=== PATIENT | male | born 1975 | race African-American/Black ===

== ENCOUNTER 2017-07-17 16:00 | Emergency (ER) | payer BC, OTHER ==
[2017-07-17] MEDS ORDERED: Losartan 50 MG Tab PO ONE (16:12)
[2017-07-17] MEDS ORDERED: Bacitracin/Neomycin/Polymyxin B Oint 0.9 GM U/D Packet TOP ONE (16:29)
[2017-07-17] MEDS ORDERED: Diphtheria,Pertussis(Acell),Tetanus Vaccine 0.5 ML SDV IM ONE (16:50)
--- NOTE | 2017-07-17 16:52 | EDM.PDOC ---
ED HPI GENERAL MEDICAL PROBLEM - General Chief Complaint: General Stated Complaint: L hand Laceration Time Seen by Provider: 07/17/17 16:11 Source of Information: Reports: Patient History Limitations: Reports: No Limitations - History of Present Illness INITIAL COMMENTS - FREE TEXT/NARRATIVE: Patient lacerated two fingers when accidentally cutting self on glass while working around home. Reports bleeding. No loss of function or numbness. No other complaints. 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) - Related Data Allergies Allergy/AdvReac Type Severity Reaction Status Date / Time No Known Allergies Allergy Verified 03/27/14 13:22 Home Meds: Home Meds Losartan [Cozaar] 50 mg PO DAILY 03/27/14 [History] Past Medical History Cardiovascular History: Reports: Hypertension Social & Family History - Tobacco Use Smoking Status *Q: Current Every Day Smoker Years of Tobacco use: 20 Packs/Tins Daily: 1 Used Tobacco, but Quit: No Second Hand Smoke Exposure: No - Alcohol Use Days Per Week of Alcohol Use: 7 Number of Drinks Per Day: 1 Total Drinks Per Week: 7 - Recreational Drug Use Recreational Drug Use: Yes Drug Use in Last 12 Months: Yes Recreational Drug Type: Reports: Marijuana/Hashish Recreational Drug Use Frequency: Rarely - Living Situation & Occupation Living situation: Reports: Occupation: Employed ED ROS GENERAL - Review of Systems Review Of Systems: ROS reveals no pertinent complaints other than HPI. ED EXAM, GENERAL - Physical Exam Exam: See Below Exam Limited By: No Limitations General Appearance: Alert, WD/WN, Anxious Eye Exam: Bilateral Eye: EOMI, PERRL Head: Atraumatic, Normocephalic Respiratory/Chest: No Respiratory Distress Extremities: Normal Capillary Refill, Other (Examination of left hand shows two lacerations located on dorsal aspect of 2nd and third digits, proximal to DIP joint. Minimal bleeding at time of arrival. Hand and fingers are NVI. Tendon function intact. ) Neurological: Alert, Normal Cognition, Normal Gait, No Motor/Sensory Deficits Psychiatric: Anxious Skin Exam: Warm, Dry, Normal Color ED GENERAL MEDICAL PROCEDURES - Laceration/Wound Repair Left Finger Lac/wound length in cm: 1.5 (left middle finger) Appearance: Subcutaneous, Linear, Clean Distal NVT: Neuro & Vascular Intact, No Tendon Injury Anesthetic Type: Local Local Anesthesia - Lidocaine (Xylocaine): 1% Plain Local Anesthetic Volume: 2cc Skin Prep: Providone-Iodine (Betadine) Exploration/Debridement/Repair: Wound Explored, Explored to Base, No Foreign Material Found Closed with: Sutures Suture Size: 4-0 # of Sutures: 3 Suture Type: Silk, Interrupted Sterile Dressing Applied: Nurse Tetanus Status Addressed: Yes Complications: No Left Dorsal Finger Lac/wound length in cm: 1 (second finger) Appearance: Subcutaneous Distal NVT: Neuro & Vascular Intact, No Tendon Injury Anesthetic Type: Local Local Anesthesia - Lidocaine (Xylocaine): 1% Plain Local Anesthetic Volume: 2cc Skin Prep: Providone-Iodine (Betadine) Exploration/Debridement/Repair: Wound Explored, Explored to Base, No Foreign Material Found Closed with: Sutures Suture Size: 4-0 # of Sutures: 2 Suture Type: Silk Sterile Dressing Applied: Nurse Tetanus Status Addressed: Yes Complications: No Course - Vital Signs Last Recorded V/S: Last Vital Signs Temp 36.6 C 07/17/17 16:03 Pulse 73 07/17/17 16:03 Resp 12 07/17/17 16:03 BP 176/112 H 07/17/17 16:24 Pulse Ox 98 07/17/17 16:03 - Orders/Labs/Meds Orders: Active Orders 24 hr Category Date Time Status Vaccines to be Administered [RC] PER UNIT ROUTINE Care 07/17/17 16:51 Ordered Meds: Medications Discontinued Medications Generic Name Dose Route Start Last Admin Trade Name Benedicto PRN Reason Stop Dose Admin Diphtheria/Tetanus/Acell Pertussis 0.5 ml 07/17/17 16:50 07/17/17 16:58 Adacel IM 07/17/17 16:51 0.5 ml .ONCE ONE Administration Lidocaine HCl 5 ml 07/17/17 16:19 07/17/17 16:24 Xylocaine-Mpf 1% INJECT 07/17/17 16:20 5 ml ONETIME ONE Administration Losartan Potassium 50 mg 07/17/17 16:12 07/17/17 16:24 Cozaar PO 07/17/17 16:13 50 mg ONETIME ONE Administration Neomycin/Polymyxin/Bacitracin 1 each 07/17/17 16:29 07/17/17 16:33 Triple Antibiotic Oint TOP 07/17/17 16:30 1 each ONETIME ONE Administration - Re-Assessments/Exams Free Text/Narrative Re-Assessment/Exam: 07/17/17 16:50 Lacerations repaired. Tetanus updated. Wound care discussed prior to discharge. Patient has not taken BP meds for several days due to running out of them. Suspect anxiety is playing large component in BP elevation noted upon arrival. Patient was given his usual daily dose of medication prior to suturing. Observed. BP rechecked. Time spent educating patient on risks of hypertension and lifestyle interventions that can help reduce the severity of the problem, including encouraging smoking cessation. Departure - Departure Time of Disposition: 17:00 Disposition: Home, Self-Care 01 Condition: Good Clinical Impression: Laceration of left index finger Qualifiers: Encounter type: initial encounter Damage to nail status: without damage Foreign body presence: without foreign body Qualified Code(s): S61.211A - Laceration without foreign body of left index finger without damage to nail, initial encounter Laceration of left middle finger Qualifiers: Encounter type: initial encounter Damage to nail status: without damage Foreign body presence: without foreign body Qualified Code(s): S61.213A - Laceration without foreign body of left middle finger without damage to nail, initial encounter - Discharge Information Instructions: VIS, Diphtheria, Tetanus, and Pertussis (DTaP) - CDC, Stitches, [place], or Adhesive Wound Closure, [id number], VIS, Tetanus, Diphtheria, and Pertussis (Tdap) - CDC Referrals: Nando Frank PA-C [Primary Care Provider] - Forms: ED Department Discharge, ED Return to Work/School Form Additional Instructions: Protect area from dirt while healing. OK to apply antibiotic ointment to sutured areas 3 times a day while healing. Keep sutures in for 7-10 days. Since you use your hands for heavy lifting at work, it is better to wait a little longer before you have the sutures removed as the wounds can reopen if the area gets hit hard enough when the sutures are first taken out. If any signs of infection or problems develop before then, follow up at clinic or ER for recheck. - My Orders Last 24 Hours: My Active Orders 07/17/17 16:51 Vaccines to be Administered [RC] PER UNIT ROUTINE - Assessment/Plan Last 24 Hours: My Active Orders 07/17/17 16:51 Vaccines to be Administered [RC] PER UNIT ROUTINE
== END 2017-07-17 17:25 | disposition home or self-care (01) ==
LOC: LL.ED 16:00
DX: S61.211A Laceration without foreign body of left index finger without damage to nail, initial encounter (principal); S61.213A Laceration without foreign body of left middle finger without damage to nail, initial encounter; F17.210 Nicotine dependence, cigarettes, uncomplicated; Z79.899 Other long term (current) drug therapy; W25.XXXA Contact with sharp glass, initial encounter
CPT/HCPCS: 12001; 90471; 90715; 99282; A9270

== ENCOUNTER 2022-03-08 16:06 | Emergency (ER) | payer BC, OTHER ==
[2022-03-08] MEDS ORDERED: Sodium Chloride 0.9% 1,000 ML IV ONE (16:18)
[2022-03-08 16:56] LABS: ANION GAP 8.8 meq/L (7-15); CHLORIDE,CL 106 mmol/L (98-107); SODIUM,NA 143 mmol/L (136-145)
[2022-03-08 16:57] LABS: ESTIMATED GFR 70 mL/min (>=60)
== END 2022-03-08 17:45 | disposition home or self-care (01) ==
LOC: LL.ED 16:06
DX: R55 Syncope and collapse (principal); F10.10 Alcohol abuse, uncomplicated; I10 Essential (primary) hypertension; Z79.899 Other long term (current) drug therapy
CPT/HCPCS: 36415; 80053; 85025; 93005; 93010; 96360; 99284; 99284-25; J7030

== ENCOUNTER 2024-04-03 15:55 | Emergency (ER) | payer OTHER, BC ==
[2024-04-03 16:58] LABS: BASOPHILS ABSOLUTE AUTO 0.05 K/uL (0.00-0.20); BASOPHILS PERCENT AUTO 0.9 % (0.0-2.0); EOSINOPHILS ABSOLUTE AUTO 0.03 K/uL (0.00-0.50); EOSINOPHILS PERCENT AUTO 0.5 % (0.0-5.0); HEMATOCRIT 40.6 % (39.0-49.0); HEMOGLOBIN 13.5 g/dL (13.1-16.8); LYMPHOCYTES ABSOLUTE AUTO 1.47 K/uL (0.50-3.50); LYMPHOCYTES PERCENT AUTO 26.9 % (10.0-50.0); MEAN CORPUSCULAR HEMOGLOBIN 24.8 pg (28.2-33.3); MEAN CORPUSCULAR HGB CONC 33.3 g/dL (31.7-36.0); MEAN CORPUSCULAR VOLUME 74.6 fL (84.0-98.0); MONOCYTES ABSOLUTE AUTO 0.38 K/uL (0.00-1.00); NEUTROPHILS ABSOLUTE AUTO 3.53 K/uL (1.40-7.00); NEUTROPHILS PERCENT AUTO 64.7 % (45.0-80.0); PLATELET COUNT,PLT 242 K/uL (150-350); RED BLOOD CELL COUNT 5.44 M/uL (4.33-5.41); WHITE BLOOD CELL COUNT,WBC 5.5 K/uL (4.0-10.2)
[2024-04-03 17:11] LABS: ALBUMIN 3.6 g/dL (3.4-5.0); ANION GAP 8.7 meq/L (7-15); BILIRUBIN TOTAL 0.4 mg/dL (0.2-1.0); CALCIUM 8.7 mg/dL (8.5-10.1); CARBON DIOXIDE,CO2 32.3 mmol/L (21.0-32.0); CREATININE 1.12 mg/dL (0.51-1.17); EST CRCL DRUG DOSING (CG) 86.84 mL/min; PROTEIN TOTAL,TP 7.4 g/dL (6.4-8.2)
[2024-04-03] MEDS: cloNIDine 0.1 MG Tab PO ONE (17:12)
[2024-04-03] MEDS: cloNIDine 0.1 MG Tab ONE (17:12)
[2024-04-03] MEDS: Diazepam 5 MG Tab PO ONE (17:42)
[2024-04-03] MEDS: Bacitracin Oint 1 GM U/D Packet TOP ONE (17:42)
[2024-04-03 17:45] LABS: APPEARANCE,URINE CLEAR; BILIRUBIN,URINE NEGATIVE (NEGATIVE); COLOR,URINE YELLOW; GLUCOSE,URINE NEGATIVE (NEGATIVE); KETONES,URINE NEGATIVE (NEGATIVE); LEUKOCYTE ESTERASE,URINE NEGATIVE (NEGATIVE); NITRITE,URINE NEGATIVE (NEGATIVE); OCCULT BLOOD,URINE NEGATIVE (NEGATIVE); PROTEIN,URINE NEGATIVE (NEGATIVE); UROBILINOGEN,URINE 0.2 E.U./dL (0.2-1.0)
[2024-04-03 17:51] LABS: BACTERIA,URINE NOT SEEN /HPF (NONE TO FEW); RBC,URINE 0-5 /HPF; WBC,URINE 0-5 /HPF
[2024-04-03] MEDS: Losartan 50 MG Tab PO ONE (18:12)
[2024-04-03] MEDS: Acetaminophen 500 MG Tab PO ONE (18:30)
== END 2024-04-03 18:41 | disposition home or self-care (01) ==
LOC: LL.ED 15:55
DX: S41.012A Laceration without foreign body of left shoulder, initial encounter (principal); S01.412A Laceration without foreign body of left cheek and temporomandibular area, initial encounter; I10 Essential (primary) hypertension; E04.9 Nontoxic goiter, unspecified; Z79.899 Other long term (current) drug therapy; W25.XXXA Contact with sharp glass, initial encounter; V49.49XA Driver injured in collision with other motor vehicles in traffic accident, initial encounter
CPT/HCPCS: 36415; 70450; 71045; 72125; 72170; 73020-LT; 74019; 80053; 80307; 81001; 84443; 85025; 99284; A9270-GY